=== PATIENT | female | born 1970 | race Caucasian/White ===

== ENCOUNTER 2017-10-26 06:00 | Day surgery (SDC) | payer BC ==
[2017-10-25 16:15] LABS: HEMOGLOBIN 14.1 g/dL (12-16); MCV 99.8 fL (80.0-100.0); MEAN PLATELET VOLUME 11.4 fL (7.4-10.4); RBC 4.41 10x6/uL (4.00-5.40); RDW 13.2 % (11.5-14.5); WBC 10.6 10x3/uL (4.8-10.8)
[2017-10-25 16:21] LABS: CALC OSMOLALITY 278 mosm/kg (275-300); CALCIUM 8.8 mg/dL (8.5-10.1); CARBON DIOXIDE 35.1 mmol/L (21.0-32.0); CHLORIDE - SERUM 102 mmol/L (98-107); CREATININE - SERUM 0.8 mg/dL (0.6-1.3); GLUCOSE 87 mg/dL (74-106); SODIUM 142 mmol/L (136-145); UREA NITROGEN 5 mg/dL (7-18); eGFR NON AFRICAN AMERICAN 82 mL/min (90-120)
[2017-10-25 16:37] LABS: POTASSIUM - SERUM 2.8 mmol/L (3.5-5.1)
[2017-10-25 17:02] LABS: APPEARANCE CLEAR (CLEAR); COLOR YELLOW (YELLOW); GLUCOSE NEGATIVE (NEGATIVE); KETONE NEGATIVE (NEGATIVE); NITRITE NEGATIVE (NEGATIVE); PROTEIN NEGATIVE (NEGATIVE); UROBILINOGEN NORMAL (NORMAL)
[2017-10-25 17:03] LABS: BILIRUBIN NEGATIVE (NEGATIVE); WHITE CELLS - URINE 0-5 /hpf (0-5)
[2017-10-25 17:04] LABS: BACTERIA FEW /hpf (NONE SEEN); RED CELLS - URINE 0-5 /hpf (0-5)
[~2017-10-26] VITALS: Ht 170.2 cm; Wt 72.6 kg
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
[~2017-10-26 06:00] MED LIST: IBUPROFEN800 MG; MAXALT10 MG PO; MORPHINE SULFAT30 M6 PO; NEURONTIN800 MG PO; PROAIR HFA8.5 GM INH; VALIUM5 MG PO
[2017-10-26 06:59] VITALS: BP 125/82; Ht 170.2 cm; Wt 72.6 kg
[2017-10-26] MEDS ORDERED: PERCOCET 10/3251 TA1 PO (09:42)
[2017-10-26] MEDS ORDERED: HYDROXYZINE HCL50 MG PO (09:43)
== END 2017-10-26 11:35 | disposition home or self-care (01) ==
LOC: D.OPS 06:00
PROVIDERS: Anesthesiology
DX: M94.262 Chondromalacia, left knee (principal); M17.12 Unilateral primary osteoarthritis, left knee; Z01.812 Encounter for preprocedural laboratory examination